=== PATIENT | female | born 1950 | race Caucasian/White ===

== ENCOUNTER 2018-08-13 23:22 | Emergency (ER) | payer MEDICARE, MEDICAID ==
--- NOTE | 2018-08-13 23:49 | ED Physician Chart ---
ED Chief Complaint/HPI - Patient Information Date Seen:: 08/13/18 Time Seen:: 23:25 Chief Complaint:: scalp laceration History of Present Illness:: At 1820 tonight patient was outside smoking a cigarette and fell out of a wheelchair striking her head. No loss of consciousness. Allergies:: Allergies Allergy/AdvReac Type Severity Reaction Status Date / Time No Known Allergies Allergy Verified 08/13/18 23:24 Historian:: Patient Review:: Transfer documents Reviewed ED Review of Systems - Review of Systems General/Constitutional: No fever, No chills, No weight loss, No weakness, No diaphoresis, No edema, No loss of appetite Skin: Skin lesions, No rash, No bruising Head: No headache, No light-headedness Eyes: No loss of vision, No pain, No diplopia ENT: No earache, No nasal drainage, No sore throat, No tinnitus Neck: No neck pain, No swelling, No thyromegaly, No stiffness, No mass noted Cardio Vascular: No chest pain, No palpitations, No PND, No orthopnea, No edema Pulmonary: No SOB, No cough, No sputum, No wheezing GI: No nausea, No vomiting, No diarrhea, No pain, No melena, No hematochezia, No constipation, No hematemesis G/U: No dysuria, No frequency, No hematuria Musculoskeletal: No bone or joint pain, No back pain, No muscle pain Endocrine: No polyuria, No polydipsia Psychiatric: Prior psych history, No depression, Anxiety, No suicidal ideation Hematopoietic: No bruising, No lymphadenopathy Allergic/Immuno: No urticaria, No angioedema Neurological: No syncope, No focal symptoms, No weakness, No paresthesia, No headache, No seizure, No dizziness, No confusion, No vertigo ED Past Medical History - Past Medical History Past Medical History: Thyroid disorder, Arthritis, Other (history of acute renal failure; hypothyroidism; anemia; schizophrenia; bipolar) Family History: Other Social History: Smoker, Care Facility Surgical History: other (unavailable) Psychiatricy History: Schizophrenia, Bipolar Medication: Reviewed ED Physical Exam - Physical Examination General/Constitutional: Awake, Alert Other Gen/Cons comments:: Chronically ill-appearing; incomprehensible speech; agitated Other Head comments:: 3 cm right frontal scalp laceration Eyes: Lids, conjuctiva normal Other Skin comments:: 3 cm right frontal scalp laceration ENMT: External ears, nose nl Other ENMT comments:: Edentulous Neck: No nuchal rigidity Respiratory: Nl effort/Exclusion Other Respiratory comments:: Decreased breath sounds Cardio Vascular: RRR, No murmur, gallop, rubs GI: No tenderness/rebounding/guarding Extremities: Normal digits & nails Neuro/Psych: No focal deficits ED Assessment - Procedures Procedures:: Skin cleansed with Betadine solution; 1% percent Xylocaine with epinephrine for local anesthesia; 3.0 chromic gut running and interrupted sutures used to close the laceration. ED Septic Shock - . Is Septic Shock (SBP<90, OR Lactate>4 mmol\L) present?: No ED Reassessment (Disposition) - Reassessment Reassessment Condition:: Improved - Diagnosis Diagnosis:: 3 cm scalp laceration - Patient Disposition Discharge/Transfer:: Long-Term Care - SNF Condition at Disposition:: Stable, Improved
== END 2018-08-14 00:50 ==
LOC: ER 23:22
DX: S01.01XA Laceration without foreign body of scalp, initial encounter (principal); M19.90 Unspecified osteoarthritis, unspecified site; E07.9 Disorder of thyroid, unspecified; F20.9 Schizophrenia, unspecified; F31.9 Bipolar disorder, unspecified; F17.210 Nicotine dependence, cigarettes, uncomplicated; W05.0XXA Fall from non-moving wheelchair, initial encounter; Y93.89 Activity, other specified; Y92.89 Other specified places as the place of occurrence of the external cause; Y99.8 Other external cause status
CPT/HCPCS: 12002; X6488; Z7502; Z7610